=== PATIENT | female | born 1945 | race Caucasian/White ===

== ENCOUNTER 2022-10-24 23:29 | Emergency (ER) | payer OTHER ==
[~2022-10-24] VITALS: Ht 157.5 cm; Wt 70.3 kg
--- NOTE | 2022-10-24 23:40 | NUR ---
Patient BIB [facility] from home for worsening chronic back pain that is worse in the last 2 weeks. Patient states she fell about 10 time today.
[2022-10-24] MEDS ORDERED: GABA-532 PO (23:47)
[2022-10-24] MEDS ORDERED: ACET-2154 PO (23:47)
[2022-10-24] MEDS ORDERED: LISI20TA30 PO (23:47)
[2022-10-24] MEDS ORDERED: ASCO500C18 PO (23:47)
[2022-10-24] MEDS ORDERED: AMLO-212 PO (23:47)
[2022-10-24] MEDS ORDERED: FAMO20TA8 PO (23:47)
[2022-10-24] MEDS ORDERED: FLUO20CA36 PO (23:47)
[2022-10-24] MEDS ORDERED: MAGN400C PO (23:48)
[2022-10-25 00:28] LABS: MEAN CORPUSCULAR HEMOGLOBIN 29.4 uug (24.7-32.8); MEAN CORPUSCULAR VOLUME 91.2 fL (75.5-95.3); PLATELET COUNT (AUTO) 243 K/uL (179-408)
[2022-10-25 00:46] LABS: CARBON DIOXIDE 25 mmol/L (21-32); CHLORIDE 103 mmol/L (98-107); CREATININE 2.3 mg/dL (0.6-1.3); GLUCOSE 129 mg/dL (74-106); POTASSIUM 5.5 mmol/L (3.5-5.1); UREA NITROGEN, BLOOD 43 mg/dL (7-18)
[2022-10-25 00:52] LABS: ALANINE AMINOTRANSFERASE 54 U/L (14-59); ALKALINE PHOSPHATASE 124 U/L (50-136); ASPARTATE AMINOTRANSFERASE 56 U/L (15-37); BILIRUBIN,DIRECT 0.2 mg/dL (0.0-0.2); BILIRUBIN,TOTAL 0.8 mg/dL (0.2-1.0); TOTAL PROTEIN, SERUM 7.3 g/dL (6.4-8.2)
[2022-10-25] MEDS ORDERED: HYDROCODONE/APAP 5-325MG TABLET PO ONE (01:15)
[2022-10-25] MEDS ORDERED: CYCLOBENZAPRINE HCL 10 MG TABLET PO ONE (01:15)
[2022-10-25] MEDS ORDERED: HYDROCODONE/APAP 5-325MG TABLET ONE (01:22)
[2022-10-25] MEDS ORDERED: CYCLOBENZAPRINE HCL 10 MG TABLET ONE (01:22)
[2022-10-25] MEDS ORDERED: SODIUM POLYSTYRENE SULFONATE 15 G/60 ML LIQUID UDC PO ONE (01:30)
[2022-10-25] MEDS ORDERED: IV NORMAL SALINE 500 ML IV ONE (01:30)
[2022-10-25] MEDS ORDERED: PIPERACILLIN SODIUM/TAZOBACTAM 3.375 G in IV DEXTROSE 5% 50 ML IV ONE (01:30)
[2022-10-25] MEDS ORDERED: VANCOMYCIN 1G/D5W 200 ML PIGGYBACK IV ONE (01:30)
[2022-10-25] MEDS ORDERED: VANCOMYCIN 1000 MG VIAL ONE (01:34)
[2022-10-25] MEDS ORDERED: PIPERACILLIN/TAZOBACTAM/D5W 50 ML IV ONE (01:34)
[2022-10-25] MEDS ORDERED: SODIUM POLYSTYRENE SULFONATE 15 G/60 ML LIQUID UDC ONE (01:35)
[2022-10-25 01:39] LABS: *BILIRUBIN,URIN NEGATIVE (NEGATIVE); *BLOOD, URINE 2+ (NEGATIVE); *COLOR,URINE YELLOW (YELLOW); *KETONES,URINE NEGATIVE (NEGATIVE); *UROBILINOGEN,URINE 0.2 E.U./dl (NORMAL); LEUKOCYTE ESTERASE ,URINE NEGATIVE (NEGATIVE); NITRITE, URINE NEGATIVE (NEGATIVE); PH,URINE 7.5 (5.0-8.0); UGLUCOSE NEGATIVE (NEGATIVE)
[2022-10-25 01:40] LABS: *CLARITY,URINE HAZY (CLEAR)
[2022-10-25 01:42] LABS: BACTERIA,URINE FEW /HPF (NONE SEEN); RBC,URINE 20-50 /HPF (0-3); SQUAMOUS EPITHELIAL CELL,UR MANY /HPF (NONE SEEN); WBC,URINE 0-3 /HPF (0-3)
--- NOTE | 2022-10-25 02:07 | NUR ---
Patient back from CT.
--- NOTE | 2022-10-25 02:13 | NUR ---
Bladder scan done and noted with 134ml of urine left in the bladder after urinating. Dr. Sethi made aware.
--- NOTE | 2022-10-25 03:29 | NUR ---
Telephone call to [facility], spoke to Juan Albetro and provided information needed for transfer.
--- NOTE | 2022-10-25 05:14 | NUR ---
Telephone call [facility], spoke to Yamel stated that Dr. Balderrama will call back. Awaiting for call.
--- NOTE | 2022-10-25 05:17 | NUR ---
Dr. Sethi on telephone call with Dr. Balderrama from [place].
[2022-10-25 06:08] LABS: CARBON DIOXIDE 26 mmol/L (21-32); CHLORIDE 105 mmol/L (98-107); CREATININE 2.3 mg/dL (0.6-1.3); GLUCOSE 117 mg/dL (74-106); POTASSIUM 4.8 mmol/L (3.5-5.1); UREA NITROGEN, BLOOD 42 mg/dL (7-18)
[2022-10-25] MEDS ORDERED: HYDROCODONE/APAP 10-325 MG TABLET PO ONE (10:45)
[2022-10-25] MEDS ORDERED: HYDROCODONE/APAP 10-325 MG TABLET ONE (10:47)
--- NOTE | 2022-10-25 11:10 | NUR ---
Recieved call from [facility] for pt's tx info.
--- NOTE | 2022-10-25 11:20 | NUR ---
Called in report to Shila at [facility].
--- NOTE | 2022-10-25 11:55 | NUR ---
Report given to transfering [employer] lab[employer].
--- NOTE | 2022-10-25 12:00 | NUR ---
Pt left ER via [facility], to [place], all belongings sent w/ pt.
== END 2022-10-25 13:04 | disposition short-term general hospital (02) ==
LOC: ER 23:32
DX: M54.50 Low back pain, unspecified (principal); R53.1 Weakness; I12.9 Hypertensive chronic kidney disease with stage 1 through stage 4 chronic kidney disease, or unspecified chronic kidney disease; N18.9 Chronic kidney disease, unspecified; R29.6 Repeated falls; Z20.822 Contact with and (suspected) exposure to COVID-19; R32 Unspecified urinary incontinence; Z88.1 Allergy status to other antibiotic agents; Z88.2 Allergy status to sulfonamides; Z79.899 Other long term (current) drug therapy; D72.829 Elevated white blood cell count, unspecified; E87.5 Hyperkalemia; R70.0 Elevated erythrocyte sedimentation rate
CPT/HCPCS: 99285; 70450; 96365; 71045; 96367; 87426; 80076; 80048 ×2; 81001; 85025; 85651; 86140; 87040 ×2; 36415; 93005; 72125; 72128; 72131; 74176; 83605; J2543; J3370; J7040